=== PATIENT | male | born 1980 | race Caucasian/White ===

== ENCOUNTER 2018-09-30 12:35 | Emergency (ER) | payer SELFPAY ==
[2018-09-30] MEDS: LORAZEPAM 1 MG TAB PO (12:56)
[2018-09-30] MEDS: NICARDipine HCL 30 MG CAPSULE PO (12:56)
== END 2018-09-30 14:08 | disposition home or self-care (01) ==
LOC: E/R 12:35
DX: F10.10 Alcohol abuse, uncomplicated (principal); I10 Essential (primary) hypertension
CPT/HCPCS: 82962; 93005; 99283-25